=== PATIENT | male | born 1975 | race Caucasian/White ===

== ENCOUNTER 2021-08-19 12:23 | Emergency (ER) | payer SELFPAY ==
[2021-08-19 12:28] VITALS: BP 133/84; PULSE 91; RESP 20; TEMP 36.4; O2SAT 100
--- NOTE | 2021-08-19 12:42 | ED.URI ---
HPI - URI/Sore Throat General Chief Complaint: Upper Respiratory Infection Stated Complaint: Sore Throat Time Seen by Provider: 08/19/21 12:42 Source: patient and RN notes reviewed Mode of arrival: ambulatory Limitations: no limitations History of Present Illness HPI Narrative: 46-year-old male presented for complaint of sore throat worsening over the last 2 days. He states he thinks he saw a tonsil stone approximately 2 weeks ago. Endorses associated postnasal drainage. He has been gargling with warm salt water. He states his children have been sick but not diagnosed. denies headache, nausea, vomiting, fever or chills. MD elicited complaint: cough Related Data Home Medications Medication Instructions Recorded Confirmed omeprazole 20 mg PO DAILY 08/19/21 08/19/21 Allergies Allergy/AdvReac Type Severity Reaction Status Date / Time No Known Allergies Allergy Unverified 08/19/21 12:26 Review of Systems Review of Systems: CONSTITUTIONAL: Denies malaise, chills, sweats, fever EYES: Denies visual changes, redness, or discharge ENT: Reports sore throat, rhinorrhea,denies congestion, sinus pain, otalgia, CARDIOVASCULAR: Denies chest pain, palpitations, edema RESPIRATORY: Reports cough, post nasal drainage. Denies dyspnea GASTROINTESTINAL: Denies abdominal pain, nausea, vomiting, diarrhea SKIN: Denies rash or itching MUSCULOSKELETAL: Denies myalgia NEUROLOGIC: Denies headache Exam Narrative: GENERAL: Ill-appearing, nontoxic HEAD: Normocephalic EYES: PERRLA, conjunctivae clear ENT: Mucous membranes moist. TM pearly english with dull light reflex bilaterally; no tragal tenderness. Oropharynx erythematous with right tonsillar exudate, no drooling, no hoarseness, no trismus, uvula midline. No tripod positioning, muffled voice, soft palate or pharyngeal wall bulging NECK: Supple. No lymphadenopathy CHEST: Clear to auscultation, breath sounds equal. No wheezing, rhonchi, rales, or stridor. No respiratory distress, speaks in full sentences. HEART: Regular rate and rhythm. No murmur heard. SKIN: Warm, dry, no rash. NEURO: Alert and oriented x3. PSYCH: Normal mood and affect Course Course Emergency Course: Patient is aware of diagnosis, understands and agrees to treatment plan. Anticipatory guidance given. Patient agrees to follow-up as directed and is aware of reasons to seek care at the emergency department. Portions of this record may have been created with voice recognition software Level of Care: Express Care Visit Vital Signs Vital signs: Vital Signs Temperature 97.6 F 08/19/21 12:28 Pulse Rate 91 08/19/21 12:28 Respiratory Rate 20 08/19/21 12:28 Blood Pressure 133/84 08/19/21 12:28 Pulse Oximetry 100 08/19/21 12:28 Temperature 97.6 F 08/19/21 12:43 Pulse Rate 91 08/19/21 12:43 Respiratory Rate 20 08/19/21 12:43 Blood Pressure 133/84 08/19/21 12:43 Pulse Oximetry 100 08/19/21 12:43 reviewed MDM - URI/Sore Throat MDM Narrative Medical decision making narrative: Strep positive, abx prescribed. He is scheduled to establish with new PCP next week and is aware of emergency s/s to watch for. Appropriate for outpt treatment and f/u. Differential Diagnosis Differential diagnosis: Likely upper respiratory infection, sinusitis, viral infection and pharyngitis Lab Data Attestation: I reviewed the patient's lab results. Discharge Plan Discharge Clinical Impression: Strep pharyngitis Patient Disposition: Home, Self-Care Condition: Stable Instructions: Antibiotic Form, Strep Throat (ED) Additional Instructions: -Take the medication as prescribed. Throw away the toothbrush after 24hours of antibiotic. -Eat and drink things that are easy to swallow, like soft foods, cool liquids, tea with honey, or popsicles . -Salt water gargles and/or may use topical anesthetic ( Chloraseptic spray) or lozenges to relieve dryness or throat pain -Take Tylenol and ibuprofen as needed for p
[2021-08-19 12:43] VITALS: BP 133/84; PULSE 91; RESP 20; TEMP 36.4; O2SAT 100
== END 2021-08-19 12:55 | disposition home or self-care (01) ==
PROVIDERS: Emergency Provider Nurse Practitioner Family
DX: J02.0 Streptococcal pharyngitis (principal)
CPT/HCPCS: 87880; 99203; G0463

== ENCOUNTER 2022-02-03 11:01 | Emergency (ER) | payer BC, SELFPAY ==
--- NOTE | ~2022-02-03 | XR_ITS ---
EXAMINATION: XR lumbar spine 2-3V DATE: 02/03/2022 12:18 INDICATION: Low back pain TECHNIQUE: Anteroposterior and lateral views of the lumbar spine, and cone-down lateral view of the l umbosacral junction were obtained. COMPARISON: None. FINDINGS: Bone alignment is normal. There is no fracture. The vertebral body heights and intervertebr al disc spaces are maintained. Small degenerative osteophytes project from the anterior endplates of multiple vertebral bodies. There is mild facet osteoarthritis of the lower lumbar spine. IMPRESSION: 1. Mild lumbar spondylosis without acute findings. Reviewed, dictated and finalized at location B.
[2022-02-03 11:14] VITALS: BP 158/91; PULSE 78; RESP 18; TEMP 36.6; O2SAT 100
--- NOTE | 2022-02-03 12:08 | ED.BACK ---
HPI - Back Pain/Injury General Chief Complaint: Back Pain/Injury Stated Complaint: middle back pain Time Seen by Provider: 02/03/22 11:40 Source: patient, family, RN notes reviewed and old records reviewed Mode of arrival: ambulatory Limitations: no limitations History of Present Illness HPI Narrative: 46-year-old male who presents to [facility] care with mid lower back pain since Wednesday morning. 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 Patient denies any radiation of pain down legs denies any tingling or numbness or any difficulty passing urine or passing stools denies any saddle paresthesia.Patient has increased pain when he tries to stand up straight. MD elicited complaint: back pain and back injury Onset (ago): day(s) (3-day history) Pain scale (0-10): 8 Work related injury: Yes Related Data Home Medications Medication Instructions Recorded Confirmed omeprazole 20 mg tablet,delayed 20 mg PO DAILY 08/19/21 02/03/22 release venlafaxine 150 mg 150 mg PO DIRECTED 02/03/22 02/03/22 capsule,extended release 24 hr Allergies Allergy/AdvReac Type Severity Reaction Status Date / Time No Known Allergies Allergy Unverified 08/19/21 12:26 Review of Systems Review of Systems: CONSTITUTIONAL: Denies fever, chills, or sweats. EYES: Denies visual changes, redness, or discharge. ENT: Denies rhinorrhea, congestion, sore throat, or otalgia. CARDIOVASCULAR: Denies chest pain, palpitations, or edema. RESPIRATORY: Denies cough or dyspnea. GASTROINTESTINAL: Denies abdominal pain, nausea, vomiting, or diarrhea. GENITOURINARY: Denies dysuria or hematuria. SKIN: Denies rash or itching. MUSCULOSKELETAL: Positive for lumbar back pain, joint pain, or myalgia. NEUROLOGIC: Denies headache, numbness, or weakness. PSYCHIATRIC: Denies anxiety or depression. All systems reviewed & are unremarkable except as noted in HPI and below PMFSH Past Medical History Medical History (Updated 02/06/22 @ 10:50 by Bailee Meehan NP) Anxiety Atopic dermatitis GERD (gastroesophageal reflux disease) Social History Social History (Updated 02/06/22 @ 10:49 by Bailee Meehan NP) Smoking packs per day: 1 Smoking cigarettes per day: 20.0 Years smoked: 20 Smoking pack-years: 20.00 Smoking status: Current every day smoker Tobacco type: e-cigarettes/vaping Additional smoking assessment comments: smoked cigarettes 20 years has vaped for past 2 years Living arrangements: with family Gender identity (if verbalized by the patient): Male Comments At time of signature, agree with nursing past medical, surgical, social and family history. There is no relevant family history pertinent to the presenting complaint Exam Narrative: GENERAL: Well-appearing, well-nourished, and in no some distress related to discomfort HEAD: Normocephalic, atraumatic. EYES: PERRLA and EOMI. ENT: Nares clear, no rhinorrhea or epistaxis. Mucous membranes moist.TM's emiliana with good light reflex, throat pink no lesions or swellig NECK: Supple.no lymphadenopathy CHEST: Clear to auscultation. No respiratory distress.SAO2 100% on room air HEART: Regular rate and rhythm. No murmur heard. Normal peripheral pulses. ABDOMEN: Soft, nontender, nondistended, normal active bowel sounds. EXTREMITIES: Normal range of motion. No edema.Discomfort to lumbar back region, tender on palpation increase pain when patient tries to stand up straight, no tingling or numbness to legs or any radition of pain down legs, denies any difficulty with bowels or bladder, no saddle paraesthesia SKIN: Warm, dry, no rash. NEURO: No focal deficits. Alert and oriented x3. Course Course Level of Care: Express Care Visit Vital Signs Vital signs: Vital Signs Temperature 36.6 C 02/03/22 11:14 Pulse Rate 78 02/03/22 11:14 Respiratory Rate 18 02/03/22 11:14 Blood Pressure 158/91 H
== END 2022-02-03 12:52 | disposition home or self-care (01) ==
PROVIDERS: Emergency Provider Registered Nurse; PCP Internal Medicine
DX: S39.012A Strain of muscle, fascia and tendon of lower back, initial encounter (principal); X50.3XXA Overexertion from repetitive movements, initial encounter; Y99.0 Civilian activity done for income or pay; K21.9 Gastro-esophageal reflux disease without esophagitis; F17.290 Nicotine dependence, other tobacco product, uncomplicated; F41.9 Anxiety disorder, unspecified
CPT/HCPCS: 72100; 99213; G0463

== ENCOUNTER 2022-06-15 13:49 | Emergency (ER) | payer BC, SELFPAY ==
[2022-06-15 13:56] VITALS: BP 131/86; PULSE 76; RESP 20; TEMP 36.9; O2SAT 100
--- NOTE | 2022-06-15 13:56 | ED.URI ---
HPI - URI/Sore Throat General Chief Complaint: Upper Respiratory Infection Stated Complaint: Sore Throat Time Seen by Provider: 06/15/22 14:00 Source: patient Mode of arrival: ambulatory Limitations: no limitations History of Present Illness HPI Narrative: Usman is a 47-year-old male patient presenting to clinic today with complaints of sore throat times 1-2 days. He reports his son has tested positive for strep. MD elicited complaint: sore throat and nasal congestion Related Data Home Medications Medication Instructions Recorded Confirmed omeprazole 20 mg tablet,delayed 20 mg PO DAILY 08/19/21 02/03/22 release venlafaxine 150 mg 150 mg PO DIRECTED 02/03/22 02/03/22 capsule,extended release 24 hr Allergies Allergy/AdvReac Type Severity Reaction Status Date / Time No Known Allergies Allergy Unverified 08/19/21 12:26 Review of Systems Review of Systems: Pertinent positives per HPI. Patient denies any fever, chills, rash, headache, visual changes, dizziness, cough, shortness of breath, chest pain, palpitations, nausea, vomiting, diarrhea, constipation, abdominal pain, or any urinary issues. [facility] Past Medical History Medical History Anxiety Atopic dermatitis GERD (gastroesophageal reflux disease) Social History Social History Smoking packs per day: 1 Smoking cigarettes per day: 20.0 Years smoked: 20 Smoking pack-years: 20.00 Smoking status: Current every day smoker Tobacco type: e-cigarettes/vaping Additional smoking assessment comments: smoked cigarettes 20 years has vaped for past 2 years Gender identity (if verbalized by the patient): Male Comments At the time of my signature, I reviewed and agree with the nursing past medical, surgical, social, and family history. There is no relevant family history pertinent to the patient complaint. Exam Narrative: General: Well-developed, well nourished, in no apparent distress Head: Normocephalic, atraumatic Eyes: Pupils equally round and reactive to light bilaterally, EOM intact, sclera and conjunctive clear, no discharge, lids normal Ears: TMs intact and clear, ear canals clear, no drainage, grossly hearing normal. Nose: Nares patent, no discharge, no inflammation, no sinus tenderness. Mouth: Oral pharynx without lesions or masses, good dentition, MMM. Oropharynx red Neck: Supple, trachea midline, no enlargement of anterior or posterior cervical nodes, no thyroid masses or goiter palpable. Cardio: Regular rate and rhythm, s1 and s2 normal, no murmur appreciated. Resp: Clear to auscultation bilaterally, no rhonchi, rales, wheezing or rubs Course Course Emergency Course: Portions of this record may have been created with voice recognition software. Level of Care: Express Care Visit Vital Signs Vital signs: Vital Signs Temperature 36.9 C 06/15/22 13:56 Pulse Rate 76 06/15/22 13:56 Respiratory Rate 20 06/15/22 13:56 Blood Pressure 131/86 06/15/22 13:56 Pulse Oximetry 100 06/15/22 13:56 Oxygen Delivery Room Air 06/15/22 13:56 Temperature 36.9 C 06/15/22 13:56 Pulse Rate 76 06/15/22 13:56 Respiratory Rate 20 06/15/22 13:56 Blood Pressure 131/86 06/15/22 13:56 Pulse Oximetry 100 06/15/22 13:56 Oxygen Delivery Room Air 06/15/22 13:56 Vital signs reviewed MDM - URI/Sore Throat MDM Narrative Medical decision making narrative: At the time of the patient is resting comfortably on exam table. Strep screen was obtained and was negative in the clinic today. Will send for culture and if this comes back positive we will place him on antibiotics at that time. Supportive measures were discussed with the patient he voiced understanding of discharge instructions and agrees with treatment plan Differential Diagnosis Differential diagnosis: Likely upper respiratory i
== END 2022-06-15 14:22 | disposition home or self-care (01) ==
PROVIDERS: Emergency Provider Nurse Practitioner Family; PCP Internal Medicine
DX: J02.9 Acute pharyngitis, unspecified (principal); F17.290 Nicotine dependence, other tobacco product, uncomplicated; K21.9 Gastro-esophageal reflux disease without esophagitis; F41.9 Anxiety disorder, unspecified
CPT/HCPCS: 87081; 87880; 99213; G0463

== ENCOUNTER 2023-06-04 08:04 | Emergency (ER) | payer SELFPAY ==
[2023-06-04 08:08] VITALS: BP 144/58; PULSE 94; RESP 16; TEMP 36.6; O2SAT 100
--- NOTE | 2023-06-04 08:08 | ED.URI ---
HPI - URI/Sore Throat General Chief Complaint: Upper Respiratory Infection Stated Complaint: throat Time Seen by Provider: 06/04/23 08:11 Source: patient, RN notes reviewed and old records reviewed Mode of arrival: ambulatory Limitations: no limitations History of Present Illness HPI Narrative: 47 year old male presents to [facility] care with complaints of sore throat today with some resolving nasal congestion with drainage and cough which started around Yuliana. Patient reports that he has had sinus drainage initially that was yellowish but now is clear, some cough continues but has improved, denies any shortness of breath.Patient reports that he took some medications for his URI symptoms but has not taken any recent medications for his sore throat. MD elicited complaint: sore throat Pertinent past history: asthma (as child) and other (recent URI) Onset (ago): day(s) (11 days) Consistency: constant Severity: moderate Pain scale (0-10): 5 Able to tolerate fluids by mouth: Yes Exacerbating factors: swallowing Treatments prior to arrival: none (recently) Related Data Home Medications Medication Instructions Recorded Confirmed omeprazole 20 mg tablet,delayed 20 mg PO DAILY 08/19/21 06/15/22 release venlafaxine 150 mg 150 mg PO DIRECTED 02/03/22 06/15/22 capsule,extended release 24 hr Allergies Allergy/AdvReac Type Severity Reaction Status Date / Time No Known Allergies Allergy Unverified 08/19/21 12:26 Review of Systems Review of Systems: CONSTITUTIONAL: Denies malaise, chills, sweats, or fever. EYES: Denies visual changes, redness, or discharge. ENT: Reports rhinorrhea, congestion,no sinus pain,no otalgia and positive for sore throat CARDIOVASCULAR: Denies chest pain, palpitations, or edema. RESPIRATORY: Reports cough.? Denies dyspnea. GASTROINTESTINAL: Denies abdominal pain, nausea, vomiting, diarrhea SKIN: Denies rash or itching. MUSCULOSKELETAL: Denies myalgia. NEUROLOGIC: Denies headache. All systems reviewed & are unremarkable except as noted in HPI and below PMFSH Past Medical History Medical History Anxiety Atopic dermatitis GERD (gastroesophageal reflux disease) Social History Social History Smoking packs per day: 1 Smoking cigarettes per day: 20.0 Years smoked: 20 Smoking pack-years: 20.00 Smoking status: Current every day smoker Tobacco type: e-cigarettes/vaping Additional smoking assessment comments: smoked cigarettes 20 years has vaped for past 2 years Living arrangements: with family Gender identity (if verbalized by the patient): Male Comments At time of signature, agree with nursing past medical, surgical, social and family history. There is no relevant family history pertinent to the presenting complaint Exam Narrative: GENERAL: Well-appearing, well-nourished, and in no acute distress. HEAD: Normocephalic EYES: PERRLA, conjunctivae clear ENT: Nares clear, turbinates edematous and erythematous, clear discharge. Mucous membranes moist. TM pearly english with dull light reflex bilaterally; no tragal tenderness. Oropharynx erythematous without lesions. Tonsils red with minimal enlargement and with white lesion, no drooling, no hoarseness, no trismus, uvula midline.post nasal drainage NECK: Supple. No lymphadenopathy CHEST: Clear to auscultation, breath sounds equal. No wheezing, rhonchi, rales, or stridor. No respiratory distress, speaks in full sentences.cough noted,SAO2 100% on room air HEART: Regular rate and rhythm. No murmur heard. SKIN: Warm, dry, no rash. NEURO: Alert and oriented x3. PSYCH: Normal mood and affect Course Course Emergency Course: Patient is aware of diagnosis, understands and agrees to treatment plan.? Anticipatory guidance given.? Patient agrees to follow-up as directed and is aware of reasons to
== END 2023-06-04 08:30 | disposition home or self-care (01) ==
PROVIDERS: Emergency Provider Registered Nurse; PCP Internal Medicine
DX: J06.9 Acute upper respiratory infection, unspecified (principal); F17.210 Nicotine dependence, cigarettes, uncomplicated
CPT/HCPCS: 87081; 87880; 99213; G0463